=== PATIENT | female | born 1955 | race Caucasian/White ===

== ENCOUNTER 2018-09-26 10:37 | Emergency (ER) | payer BC ==
[~2018-09-26] VITALS: Ht 170.2 cm; Wt 61.2 kg
[2018-09-26] MEDS ORDERED: ALBUTEROL/IPRATROPIUM 3 ML NEB NEB ONE (11:45)
--- NOTE | 2018-09-26 14:09 | Diagnostic Imaging Report ---
EXAM: CHEST 2 VIEWS, PA and lateral DATE: 09/26/2018 Time stamp on exam: 1:08 PM INDICATION: Cough COMPARISON: None FINDINGS: LINES/TUBES: Partially visualized plate overlying the lower cervical spine. LUNGS: Left lower lobe airspace opacity likely represents pneumonia. PLEURA: No effusions or pneumothorax. HEART AND MEDIASTINUM: Normal size and contour. BONES AND SOFT TISSUES: Degenerative changes of the spine. Calcified bilateral breast implants. IMPRESSION: Left lower lobe pneumonia. Signed by: Dr. Grover Pickett DO on 09/26/2018 2:06 PM
[2018-09-26 16:10] VITALS: BP 159/89
== END 2018-09-26 16:15 | disposition home or self-care (01) ==
LOC: ER 10:37
DX: R05 Cough (principal); J20.9 Acute bronchitis, unspecified; I10 Essential (primary) hypertension
CPT/HCPCS: 71046; 99283